=== PATIENT | male | born 1990 ===

== ENCOUNTER 2016-08-23 12:02 | Outpatient (CLI) | payer OTHER ==
--- NOTE | 2016-08-23 15:11 | Ultrasound Report ---
Limited soft tissue ultrasound of the left upper extremity. History: Pain and swelling after venipuncture. Findings: The examination was limited to the area of the patient's signs and symptoms. There is no evidence of a mass or abnormal fluid collections. Impression: Negative study.
== END 2016-08-23 12:03 | disposition home or self-care (01) ==
LOC: US 12:02
PROVIDERS: ATTEND Family Medicine
DX: M79.622 Pain in left upper arm (principal)